=== PATIENT | female | born 1950 ===

== ENCOUNTER 2016-12-15 08:25 | Day surgery (SDC) | payer BC, MEDICAID ==
--- NOTE | 2016-12-10 10:22 | HP ---
PREOPERATIVE HISTORY AND PHYSICAL: DATE OF SURGERY/ADMISSION: 12/15/16 [facility] DATE OF OFFICE VISIT/ENCOUNTER: 12/09/16 ATTENDING SURGEON: Rebeca Parsons MD (DICTATED BY JO MOURA) PROCEDURE: Left wrist carpal tunnel release, left ring finger trigger finger release, right carpal tunnel cortisone injection. CHIEF COMPLAINT: Numbness and tingling, bilateral hands; left ring finger trigger finger. HISTORY OF PRESENT ILLNESS: This is a 66-year-old female with bilateral carpal tunnel syndrome and left ring finger trigger finger, symptoms have been present for several years. The patient did have a right carpal tunnel release performed years ago, but symptoms returned and now she is also having symptoms in her left hand along with the left ring finger trigger finger. She has received injections for all three problems in the past, but some symptoms have recurred. She is interested at this point in more definitive treatment for the left hand, which is more bothersome than the right. She has consented to proceed with a left carpal tunnel release and a left ring finger trigger finger release. She will also receive a cortisone injection in her right carpal tunnel at the time of surgery. PAST MEDICAL HISTORY: 1. Hypertension. 2. GERD. PAST SURGICAL HISTORY: 1. Hysterectomy in 1990. 2. Right total knee arthroplasty [place] [address] Conde. 3. Left shoulder rotator cuff repair by Dr. Conde. CURRENT MEDICATIONS: 1. Hydrochlorothiazide 25 mg daily. 2. Lisinopril 5 mg daily. 3. Nexium 40 mg daily. ALLERGIES: No known drug allergies. FAMILY MEDICAL HISTORY: Noncontributory. SOCIAL HISTORY: The patient is employed as an [employer]. She denies tobacco use and recreational drug use. Does admit to alcohol use on rare occasion. REVIEW OF SYSTEMS: General: Negative for fevers, chills, or night sweats. No known anesthesia problems. HEENT: Negative for headache, lightheadedness, or syncopal episodes. Integumentary: Negative for abrasions, lesions, or open wounds. Cardiothoracic: Positive for hypertension. Negative for chest pain, palpitations, or edema. Pulmonary: Negative for shortness of breath with exertion, chronic cough, or COPD. GI: Positive for GERD. Negative for nausea , vomiting, diarrhea, or constipation. : Negative for nocturia, urinary frequency, urgency, history of UTIs, or kidney problem. Musculoskeletal: Positive for current complaint. Negative for chronic intermittent back pain or history of fractures. Neurological: Negative for history of seizure, stroke, or epilepsy. Endocrine: Negative for diabetes or thyroid issues. Hematologic: Negative for easy bruising, anemia, excessive bleeding, or history of DVT. Infectious Disease: Negative for history of MRSA, hepatitis C, or HIV. PHYSICAL EXAMINATION GENERAL: Well-developed, well-nourished 66-year-old female, in no acute distress. VITAL SIGNS: Height 4 feet 8 inches, weight 155 pounds. Pulse rate 98, blood pressure 143/85. HEENT: Normocephalic, atraumatic. Pupils are equal, round, and reactive to light and accommodation. Extraocular movements are intact. Throat is clear. NECK: Supple. No palpable lymph nodes. PULMONARY: Lungs are clear to auscultation bilaterally. No wheezes, rales, or rhonchi. CARDIOVASCULAR: Regular rate and rhythm. S1, S2. No murmurs, rubs, or gallops. No edema. ABDOMEN: Positive bowel sounds. Soft, nontender. NEUROLOGIC: Alert and oriented x3. Cranial nerves II through XII are intact. Sensation is intact to light touch. PERIPHERAL VASCULAR: 2+ radial and ulnar pulses. Negative Manuel test. MUSCULOSKELETAL: On exam of her bilateral hands, there is no notable thenar wasting, but there is mild weakness with thumb abduction bilaterally. The patient has a mildly positive Tinel's sign on the left, negative on the right. Positive Phalen's test bilaterally. Slight decrease in sensation bilaterally in the median nerve distribution to light touch. The patient also has tenderness to palpation at the A1 shaan of the left ring finger. She has trouble closing her ring finger down into a tight flexed position and there is catching upon return into extension. IMPRESSION: Bilateral carpal tunnel syndrome, left worse than right; right ring finger trigger finger. PLAN: The patient is scheduled to undergo a left wrist carpal tunnel release, left ring finger trigger finger release, and a right carpal tunnel cortisone injection with Dr. Parsons on 12/15/16. She will return to the office 10 to 14 days postop for followup and suture removal. A prescription for Ultracet was e- scribed to the patient's pharmacy for postoperative pain management. JO MOURA [id number]/[facility] #: [id number] [facility]
[~2016-12-15 08:25] MED LIST: Buffered Lidocaine 1% SYR 3ML* 3 ML/SYR SYRINGE INTRADERM ONE; Famotidine IV* 10 MG/ML 2 ML (20 mg) IV ONE; Lidocaine 1% INJ* 10 MG/ML 30 ML SDV ONE; methylPREDNISolone ACETATE 80* 80 MG/ML 1 ML VIAL ONE
[2016-12-15] MEDS ORDERED: Famotidine IV* 10 MG/ML 2 ML (20 mg) ONE (08:46)
[2016-12-15] MEDS ORDERED: Ketorolac INJ* 30 MG/ML 1 ML VIAL ONE (09:27)
[2016-12-15] MEDS ORDERED: Ondansetron INJ* 2 MG/ML VIAL ONE (09:27)
[2016-12-15] MEDS ORDERED: Midazolam* 1 MG/ML 5 ML VIAL (5 MG) ONE (09:27)
[2016-12-15] MEDS ORDERED: fentaNYL* 50 MCG/ML 2 ML VIAL (100 MCG VIAL) ONE (09:27)
[2016-12-15] MEDS ORDERED: Lidocaine 2% PF * 5 ML VIAL ONE (09:27)
[2016-12-15] MEDS ORDERED: Propofol* 10 MG/ML 20 ML BTL IV PUSH ONE (09:27)
[2016-12-15 10:45] VITALS: BP 109/68
[2016-12-15] MEDS ORDERED: Acetaminophen TAB* 325 MG PO PRN (10:47)
[2016-12-15] MEDS ORDERED: DiMENhydriNATE IV* 50 MG/ML VIAL IV PUSH PRN (10:47)
--- NOTE | 2016-12-15 21:44 | OP ---
DATE OF OPERATION: 12/15/16 [facility] DATE OF : 54 SURGEON: Rebeca Parsons MD MANAGER PORT: JO Gross ANESTHESIOLOGIST: Jil Montemayor MD ANESTHESIA: Local MAC. PRE-OP DIAGNOSES: Left ringer finger, trigger finger, left carpal tunnel release and right carpal tunnel release. POST-OP DIAGNOSES: Left ringer finger trigger finger, left carpal tunnel release and right carpal tunnel release. OPERATIVE PROCEDURE: Left ring finger trigger release, left carpal tunnel release, and right carpal tunnel injection. ESTIMATED BLOOD LOSS: Zero. TOURNIQUET TIME: About 10 minutes. INDICATIONS FOR PROCEDURE: Alia is a 66-year-old female with numbness and tingling in the median nerve distribution of both hands and locking of her left ring finger. She has failed conservative treatment and presents for left trigger finger release and left carpal tunnel release and right carpal tunnel injection. DESCRIPTION OF PROCEDURE: The patient was brought to the operating room, was given a sedation anesthetic and a local infiltration of 10 cc of 1% plain lidocaine in the palm of her left hand. She was also given an injection of 80 mg Depo-Medrol and 2 cc of 1% plain lidocaine into the left carpal tunnel after a sterile prep. The skin of her left hand and forearm was prepped and draped in the usual sterile fashion. The hand and forearm were exsanguinated and the tourniquet elevated to 250 mmHg. A transverse incision was made, centered over the A1 shaan of the left ring finger. We dissected bluntly through the subcutaneous tissue and the digital neurovascular bundles were retracted by the orthopedic assistant, Merlyn Martinez. The A1 shaan was then incised longitudinally completely releasing the FDS and FDP tendons. There was some abrasion of the FDS tendon, but it was intact and functional. The wound was irrigated and the skin edges were reapproximated with 4- 0 nylon suture. Next, the longitudinal incision was made in the palm in line with the ring finger, dissected bluntly through the subcutaneous tissue down to the transverse carpal ligament. The ligament was divided sharply with the knife and then more proximally with the scissors. The nerve was dissected free from the surrounding tissue and there was an area of moderate compression at the mid portion of the ligament. The wound was irrigated and skin edges reapproximated with 4-0 nylon suture. The wound was dressed with Xeroform, 4x4, Webril, and an Dustin wrap. The patient tolerated the procedure well, was brought to the recovery room in good condition. [id number]/[facility] #: [id number] MTDD
== END 2016-12-15 10:58 | disposition home or self-care (01) ==
LOC: OREAST 08:25
PROVIDERS: ATTEND Orthopaedic Surgery
DX: G56.02 Carpal tunnel syndrome, left upper limb (principal); M65.342 Trigger finger, left ring finger; G56.01 Carpal tunnel syndrome, right upper limb; I10 Essential (primary) hypertension
CPT/HCPCS: J1040; J1885; J2001; J2250; J2405; J2704; J3010